=== PATIENT | male | born 1990 | race Caucasian/White ===

== ENCOUNTER 2022-11-11 17:39 | Inpatient (IN) | payer MEDICAID ==
[~2022-11-11] VITALS: Ht 182.9 cm; Wt 83.9 kg
[2022-11-11] MEDS ORDERED: gabapentin (17:44)
[2022-11-11] MEDS ORDERED: baclofen (17:44)
[2022-11-11] MEDS ORDERED: HYDROCODONE/ACETAMINOPHEN 5/325MG TABLET PO ONE (18:15)
[2022-11-11] MEDS ORDERED: KETOROLAC 60MG/2ML VIAL IM ONE (18:15)
[2022-11-11] MEDS ORDERED: SODIUM CHLORIDE 0.9% 1,000 ML IV ONE (21:15)
[2022-11-11 22:46] LABS: BASOPHILS % 0.8 % (0.0-2.0); HEMATOCRIT. 43.2 % (42.0-52.0); MEAN CORPUSCULAR HEMOGLOBIN 30.8 pg (28.0-32.0); MEAN PLATELET VOLUME 8.1 fl (7.4-10.4); MONOCYTES % 5.2 % (2.0-8.0); PLATELET 262 x1000/uL (130-400); RED BLOOD CELL COUNT 4.86 mill/uL (4.7-6.1); RED CELL DISTRIBUTION WIDTH 12.8 % (11.6-14.6)
[2022-11-11 22:51] LABS: CHLORIDE 99 mEq/L (98-107)
[2022-11-11 23:02] LABS: CREATINE KINASE 52 IU/L (39-308)
[2022-11-12] MEDS ORDERED: ONDANSETRON HCL 4MG/2ML INJ IV PRN (08:45)
[2022-11-12] MEDS ORDERED: HYDROCODONE/ACETAMINOPHEN 5/325MG TABLET PO PRN (08:45)
[2022-11-12] MEDS ORDERED: NALOXONE HCL 0.4MG/ML VIAL IV PRN (08:45)
[2022-11-12 09:50] VITALS: BP 120/84
[2022-11-12 10:32] VITALS: BP 120/84
[2022-11-12 11:56] VITALS: BP 123/76
[2022-11-12] MEDS ORDERED: LACTULOSE 20G/30ML UDC PO NR (14:30)
[2022-11-12] MEDS ORDERED: POTASSIUM CHLORIDE 20MEQ TABLET SR PO NR (14:30)
[2022-11-12] MEDS ORDERED: DOCUSATE SODIUM 250MG CAPSULE PO SCH (14:30)
[2022-11-12] MEDS ORDERED: DOCU250C14 MT (14:31)
[2022-11-12 15:40] VITALS: BP 115/72
[2022-11-12 16:20] VITALS: BP 115/72
[2022-11-12 16:52] LABS: *AMPHETAMINES SCREEN URINE NEGATIVE (NEGATIVE); *BARBITURATES SCREEN URINE NEGATIVE (NEGATIVE); *BENZODIAZEPINES SCREEN URINE NEGATIVE (NEGATIVE); *COCAINE SCREEN URINE NEGATIVE (NEGATIVE); CANNABINOID URINE SCREEN NEGATIVE (NEGATIVE); METHADONE URINE SCREEN NEGATIVE (NEGATIVE); OPIATES URINE SCREEN NEGATIVE (NEGATIVE); PHENCYCLIDINE URINE SCREEN NEGATIVE (NEGATIVE)
== END 2022-11-12 17:00 | disposition home or self-care (01) | DRG 347 ==
LOC: ER 17:58 → MICUSO 22:00 → 8WST 11-12 09:31
PROVIDERS: ADMIT Internal Medicine; ATTEND Internal Medicine
DX: M51.36 Other intervertebral disc degeneration, lumbar region (principal); G89.29 Other chronic pain; M41.9 Scoliosis, unspecified; M48.00 Spinal stenosis, site unspecified; Z88.6 Allergy status to analgesic agent
CPT/HCPCS: 36415; 71045; 72131; 80053; 80305; 82270; 82550; 83735; 83880; 84484; 85025; 93005; 99285; J1885; J7030